=== PATIENT | male | born 2000 | race African-American/Black ===

== ENCOUNTER 2024-04-02 15:53 | Emergency (ER) | payer SELFPAY ==
[2024-04-02] MEDS ORDERED: Dicyclomine 20 MG TAB ONE ×2 (16:52→16:55)
[2024-04-02] MEDS ORDERED: Ondansetron ODT 4 MG TAB ONE (16:52)
[2024-04-02] MEDS ORDERED: Acetaminophen 500 MG TAB ONE (16:52)
== END 2024-04-02 18:12 | disposition home or self-care (01) ==
LOC: CSHERS 15:53
DX: A08.4 Viral intestinal infection, unspecified (principal)
CPT/HCPCS: 99283; Q0162